=== PATIENT | female | born 1940 | race African-American/Black ===

== ENCOUNTER 2019-06-25 17:09 | Inpatient (IN) | payer MEDICARE, MEDICAID ==
[~2019-06-25] VITALS: Ht 160 cm; Wt 77.1 kg
[2019-06-25 19:28] LABS: CLARITY URINE CLEAR (CLEAR); COLOR URINE YELLOW (YELLOW); KETONES URINE TRACE (NEGATIVE); LEUKOCYTE ESTERASE URINE 2+ (NEGATIVE); NITRITE URINE POSITIVE (NEGATIVE); OCCULT BLOOD URINE 1+ (NEGATIVE); PH URINE 5.5 (4.5-8.0); PROTEIN URINE 1+ (NEGATIVE); SPECIFIC GRAVITY URINE 1.026 (1.005-1.030)
[2019-06-25 19:39] LABS: *AMPHETAMINES SCREEN URINE NEGATIVE (NEGATIVE); *COCAINE SCREEN URINE NEGATIVE (NEGATIVE); CANNABINOID URINE SCREEN NEGATIVE (NEGATIVE); METHADONE URINE SCREEN NEGATIVE (NEGATIVE); OPIATES URINE SCREEN NEGATIVE (NEGATIVE); PHENCYCLIDINE URINE SCREEN NEGATIVE (NEGATIVE)
[2019-06-25 19:40] LABS: *BARBITURATES SCREEN URINE NEGATIVE (NEGATIVE); *BENZODIAZEPINES SCREEN URINE NEGATIVE (NEGATIVE)
[2019-06-25 19:48] LABS: BASOPHILS % 0.6 % (0.0-2.0); EOSINOPHILS % 1.7 % (0.0-5.0); HEMATOCRIT. 41.6 % (36.0-48.0); HEMOGLOBIN. 13.7 g/dL (12.0-16.0); MEAN CORPUSCULAR HEMOGLOBIN 31.2 pg (28.0-32.0); MEAN CORPUSCULAR VOLUME 94.8 fL (81.0-99.0); MEAN PLATELET VOLUME 8.2 fl (7.4-10.4); MONOCYTES % 10.2 % (2.0-8.0); NEUTROPHILS % 62.5 % (40.0-76.0); PLATELET 178 x1000/uL (130-400); RED BLOOD CELL COUNT 4.39 mill/uL (4.2-5.4); RED CELL DISTRIBUTION WIDTH 14.9 % (11.6-14.6)
[2019-06-25 19:54] LABS: CHLORIDE 111 mEq/L (98-107)
[2019-06-25 19:58] LABS: ETHANOL BLOOD < 10 mg/dL
[2019-06-25] MEDS ORDERED: LEVOFLOXACIN 500MG TABLET PO ONE (20:00)
[2019-06-25] MEDS ORDERED: LEVOFLOXACIN 500MG PREMIX 100 ML IV SCH (21:30)
[2019-06-25] MEDS ORDERED: ONDANSETRON HCL 4MG/2ML INJ IV PRN (21:30)
[2019-06-25] MEDS ORDERED: MAGNESIUM/ALUMINUM HYDROXIDE/SIMETHICONE 30ML UDC PO PRN (21:30)
[2019-06-25] MEDS ORDERED: ACETAMINOPHEN 325MG TABLET PO PRN ×2 (21:30)
[2019-06-25] MEDS ORDERED: CLONIDINE 0.1MG TABLET PO PRN (21:30)
[2019-06-25] MEDS ORDERED: GUAIFENESIN 200MG/10ML SUGAR FREE UDC PO PRN (21:30)
[2019-06-25] MEDS ORDERED: DOCUSATE SODIUM 100MG CAPSULE PO PRN (21:30)
[2019-06-25] MEDS ORDERED: NITROGLYCERIN 0.4MG TABLET SL SL PRN (21:30)
[2019-06-25] MEDS ORDERED: IPRATROPIUM/ALBUTEROL 0.5-3(2.5)MG/3ML NEB ORI PRN (21:30)
[2019-06-25 22:10] LABS: LDL CHOLESTEROL 107 mg/dL (5-100); TOTAL IRON BINDING CAPACITY 471 ug/dL (250-450)
[2019-06-25 22:11] LABS: CREATINE KINASE 116 IU/L (26-192); CREATINE KINASE MB FRACTION 1.6 ng/mL (0.5-3.6); HDL CHOLESTEROL 62 mg/dL (40-59)
[2019-06-25 22:12] LABS: T4 FREE 0.99 ng/dL (0.76-1.46)
[2019-06-25] MEDS ORDERED: KETOROLAC 15MG/ML VIAL IV PRN (23:52)
[2019-06-25] MEDS ORDERED: ZOLPIDEM TARTRATE 5MG TABLET PO PRN (23:55)
[2019-06-26] MEDS: HALOPERIDOL LACTATE 5MG/ML VIAL IM PRN (04:22)
[2019-06-26 06:17] LABS: HEMATOCRIT. 39.5 % (36.0-48.0); HEMOGLOBIN. 13.1 g/dL (12.0-16.0); MEAN CORPUSCULAR HEMOGLOBIN 31.2 pg (28.0-32.0); MEAN CORPUSCULAR VOLUME 93.8 fL (81.0-99.0); MEAN PLATELET VOLUME 8.4 fl (7.4-10.4); PLATELET 159 x1000/uL (130-400); RED BLOOD CELL COUNT 4.21 mill/uL (4.2-5.4); RED CELL DISTRIBUTION WIDTH 14.9 % (11.6-14.6)
[2019-06-26 06:22] LABS: CHLORIDE 109 mEq/L (98-107)
[2019-06-26 06:28] LABS: PHOSPHORUS 2.3 mg/dL (2.5-4.9)
[2019-06-26 06:30] LABS: CREATINE KINASE 177 IU/L (26-192)
[2019-06-26 06:33] LABS: CREATINE KINASE MB FRACTION 2.1 ng/mL (0.5-3.6)
[2019-06-26 07:28] LABS: PLATELET ESTIMATE NORMAL
[2019-06-26] MEDS: ENOXAPARIN 40MG/0.4ML SYR SUBCUT SCH (08:57)
[2019-06-26] MEDS ORDERED: ZINC SULFATE 220 MG ( 50 ) CAPSULE PO SCH (09:00)
[2019-06-26] MEDS ORDERED: METOPROLOL TARTRATE 25MG TABLET PO SCH (09:00)
[2019-06-26] MEDS ORDERED: ASCORBIC ACID 500 MG TABLET PO SCH (09:00)
[2019-06-26] MEDS ORDERED: ASPIRIN 325MG EC TABLET PO SCH (09:00)
[2019-06-26] MEDS ORDERED: FAMOTIDINE 20MG TABLET PO SCH (09:00)
[2019-06-26] MEDS ORDERED: IPRATROPIUM/ALBUTEROL 0.5-3(2.5)MG/3ML NEB ORI PRN ×2 (10:00→12:00)
[2019-06-26] MEDS ORDERED: ACETAMINOPHEN 325MG TABLET PO PRN ×2 (10:00)
[2019-06-26 10:53] VITALS: BP 116/90
[2019-06-26] MEDS: FAMOTIDINE 20MG TABLET PO SCH (11:55)
[2019-06-26] MEDS: METOPROLOL TARTRATE 25MG TABLET PO SCH ×2 (11:55→20:55)
[2019-06-26] MEDS: ASCORBIC ACID 500 MG TABLET PO SCH ×2 (11:55→20:56)
[2019-06-26 12:00] VITALS: BP 136/75
[2019-06-26] MEDS ORDERED: CLONIDINE 0.1MG TABLET PO PRN (12:00)
[2019-06-26] MEDS ORDERED: KETOROLAC 15MG/ML VIAL IV PRN (12:00)
[2019-06-26] MEDS ORDERED: NITROGLYCERIN 0.4MG TABLET SL SL PRN (12:00)
[2019-06-26] MEDS ORDERED: GUAIFENESIN 200MG/10ML SUGAR FREE UDC PO PRN (12:00)
[2019-06-26] MEDS ORDERED: ONDANSETRON HCL 4MG/2ML INJ IV PRN (12:00)
[2019-06-26] MEDS ORDERED: DOCUSATE SODIUM 100MG CAPSULE PO PRN (12:00)
[2019-06-26] MEDS ORDERED: MAGNESIUM/ALUMINUM HYDROXIDE/SIMETHICONE 30ML UDC PO PRN (12:00)
[2019-06-26] MEDS: ASPIRIN 325MG EC TABLET PO SCH (15:36)
[2019-06-26] MEDS: ZINC SULFATE 220 MG ( 50 ) CAPSULE PO SCH (15:36)
[2019-06-26] MEDS: SODIUM CHLORIDE 0.9% 1,000 ML IV SCH ×2 (15:37→23:58)
[2019-06-26 16:00] VITALS: BP 139/71
[2019-06-26 20:00] VITALS: BP 108/66
[2019-06-26] MEDS ORDERED: LEVOFLOXACIN 250MG PREMIX 50 ML IV SCH (21:00)
[2019-06-27] VITALS: BP 125/84
[2019-06-27 04:00] VITALS: BP 118/71
[2019-06-27 08:00] VITALS: BP 112/66
[2019-06-27] MEDS: ZINC SULFATE 220 MG ( 50 ) CAPSULE PO SCH (08:42)
[2019-06-27] MEDS: FAMOTIDINE 20MG TABLET PO SCH (08:43)
[2019-06-27] MEDS: METOPROLOL TARTRATE 25MG TABLET PO SCH ×2 (08:43→21:00)
[2019-06-27] MEDS: ASPIRIN 325MG EC TABLET PO SCH (08:43)
[2019-06-27] MEDS: ASCORBIC ACID 500 MG TABLET PO SCH ×2 (08:43→23:05)
[2019-06-27] MEDS: ENOXAPARIN 40MG/0.4ML SYR SUBCUT SCH (09:00)
[2019-06-27 12:00] VITALS: BP 90/45
[2019-06-27] MEDS: SODIUM CHLORIDE 0.9% 1,000 ML IV SCH (13:18)
[2019-06-27] MEDS: LEVOFLOXACIN 250MG TABLET PO SCH (14:00)
[2019-06-27 16:00] VITALS: BP 101/61
[2019-06-27 20:00] VITALS: BP 103/47
[2019-06-27] MEDS ORDERED: ZOLPIDEM TARTRATE 5MG TABLET PO PRN (23:10)
[2019-06-28 00:37] VITALS: BP 105/61
[2019-06-28] MEDS: SODIUM CHLORIDE 0.9% 1,000 ML IV SCH ×2 (02:38→15:58)
[2019-06-28 04:00] VITALS: BP 111/64
[2019-06-28] MEDS: HALOPERIDOL LACTATE 5MG/ML VIAL IM PRN (06:27)
[2019-06-28 08:00] VITALS: BP 118/72
[2019-06-28] MEDS: ASCORBIC ACID 500 MG TABLET PO SCH ×2 (08:38→20:16)
[2019-06-28] MEDS: FAMOTIDINE 20MG TABLET PO SCH (08:38)
[2019-06-28] MEDS: ZINC SULFATE 220 MG ( 50 ) CAPSULE PO SCH (08:38)
[2019-06-28] MEDS: ASPIRIN 325MG EC TABLET PO SCH (08:38)
[2019-06-28] MEDS: METOPROLOL TARTRATE 25MG TABLET PO SCH ×2 (08:46→20:16)
[2019-06-28] MEDS: ENOXAPARIN 40MG/0.4ML SYR SUBCUT SCH (08:47)
[2019-06-28] MEDS: LEVOFLOXACIN 250MG TABLET PO SCH (11:05)
[2019-06-28 16:00] VITALS: BP 106/66
[2019-06-28 20:00] VITALS: BP 119/78
[2019-06-29] VITALS: BP 110/63
[2019-06-29 04:00] VITALS: BP 113/75
[2019-06-29] MEDS: SODIUM CHLORIDE 0.9% 1,000 ML IV SCH (05:06)
[2019-06-29 07:42] VITALS: BP 113/75
[2019-06-29] MEDS: ZINC SULFATE 220 MG ( 50 ) CAPSULE PO SCH (08:46)
[2019-06-29] MEDS: ASCORBIC ACID 500 MG TABLET PO SCH (08:46)
[2019-06-29] MEDS: ASPIRIN 325MG EC TABLET PO SCH (08:46)
[2019-06-29] MEDS: FAMOTIDINE 20MG TABLET PO SCH (08:46)
[2019-06-29] MEDS: METOPROLOL TARTRATE 25MG TABLET PO SCH (08:47)
[2019-06-29] MEDS: ENOXAPARIN 40MG/0.4ML SYR SUBCUT SCH (08:48)
== END 2019-06-29 13:30 | disposition home or self-care (01) | DRG 463 ==
LOC: EDBD 17:09 → ER 17:09 → 6WST 21:12 → SUPCPDRO 21:18 → EDBEDREQSVC 06-26 04:37 → EDBEDREQTM 06-26 04:37 → ENRESERV 06-26 08:37 → ER 06-26 09:56
PROVIDERS: ADMIT Internal Medicine; ATTEND Internal Medicine
DX: N30.90 Cystitis, unspecified without hematuria (principal); G92 Toxic encephalopathy; E83.52 Hypercalcemia; E86.0 Dehydration; I10 Essential (primary) hypertension; M19.90 Unspecified osteoarthritis, unspecified site; R44.3 Hallucinations, unspecified; Z88.5 Allergy status to narcotic agent; Z88.0 Allergy status to penicillin; Z88.8 Allergy status to other drugs, medicaments and biological substances; Z79.899 Other long term (current) drug therapy
CPT/HCPCS: 36415; 80053; 80061; 80305; 80307; 80320; 80329; 81003; 82550; 82553; 82607; 82746; 83540; 83550; 83735; 84100; 84145; 84439; 84443; 84484; 85025; 85379; 93306; 93970; 97162; 97166; 99285; J1630; J1650; J1956; J7030; G0480

== ENCOUNTER 2019-07-10 00:08 | Emergency (ER) | payer MEDICARE, MEDICAID ==
[~2019-07-10] VITALS: Ht 165.1 cm; Wt 81.0 kg
[2019-07-10 01:00] LABS: CHLORIDE 111 mEq/L (98-107)
[2019-07-10 01:01] LABS: BASOPHILS % 0.5 % (0.0-2.0); EOSINOPHILS % 1.3 % (0.0-5.0); HEMATOCRIT. 40.6 % (36.0-48.0); HEMOGLOBIN. 13.6 g/dL (12.0-16.0); LYMPHOCYTES % 26.4 % (20.0-50.0); MEAN CORPUSCULAR HEMOGLOBIN 31.5 pg (28.0-32.0); MEAN CORPUSCULAR VOLUME 94.2 fL (81.0-99.0); MEAN PLATELET VOLUME 8.3 fl (7.4-10.4); MONOCYTES % 13.8 % (2.0-8.0); PLATELET 166 x1000/uL (130-400); RED BLOOD CELL COUNT 4.31 mill/uL (4.2-5.4); RED CELL DISTRIBUTION WIDTH 15.8 % (11.6-14.6)
[2019-07-10 01:59] VITALS: BP 132/82
== END 2019-07-10 03:55 | disposition home or self-care (01) ==
LOC: ER 00:08
DX: G89.29 Other chronic pain (principal); F20.0 Paranoid schizophrenia; E78.00 Pure hypercholesterolemia, unspecified; I10 Essential (primary) hypertension; E11.9 Type 2 diabetes mellitus without complications; Z88.6 Allergy status to analgesic agent; Z91.048 Other nonmedicinal substance allergy status; Z88.0 Allergy status to penicillin; Z79.899 Other long term (current) drug therapy
CPT/HCPCS: 36415; 80053; 83880; 84484; 85025; 93005; 99284

== ENCOUNTER 2019-07-27 12:35 | Inpatient (IN) | payer MEDICARE, MEDICAID ==
[~2019-07-27] VITALS: Ht 157.5 cm; Wt 63.5 kg
[2019-07-27] MEDS ORDERED: FUROSEMIDE 40MG/4ML VIAL IV ONE (13:45)
[2019-07-27] MEDS ORDERED: NITROGLYCERIN OINT 1GM/INCH UDPKT TD ONE (13:45)
[2019-07-27] MEDS ORDERED: ASPIRIN 81MG TABLET PO ONE (13:45)
[2019-07-27 15:43] LABS: CHLORIDE 115 mEq/L (98-107)
[2019-07-27 15:48] LABS: BASOPHILS % 0.9 % (0.0-2.0); D-DIMER 2.19 mg/L FEU (<0.50); HEMATOCRIT. 39.4 % (36.0-48.0); HEMOGLOBIN. 12.4 g/dL (12.0-16.0); INR 1.4; LYMPHOCYTES % 39.2 % (20.0-50.0); MEAN CORPUSCULAR HEMOGLOBIN 31.3 pg (28.0-32.0); MEAN CORPUSCULAR VOLUME 99.6 fL (81.0-99.0); MEAN PLATELET VOLUME 9.2 fl (7.4-10.4); MONOCYTES % 12.9 % (2.0-8.0); PARTIAL THROMBOPLASTIN TIME 31.5 sec (23.4-31.0); PLATELET 144 x1000/uL (130-400); RED BLOOD CELL COUNT 3.95 mill/uL (4.2-5.4); RED CELL DISTRIBUTION WIDTH 16.8 % (11.6-14.6)
[2019-07-27] MEDS: MORPHINE SULFATE 2 MG/ML CPJ (NOT FOR IM USE) IV PRN (20:47)
[2019-07-27 21:56] VITALS: BP 115/67
[2019-07-27] MEDS: ZOLPIDEM TARTRATE 5MG TABLET PO PRN (23:19)
[2019-07-28] VITALS: BP 109/66
[2019-07-28 04:00] VITALS: BP 124/68
[2019-07-28 08:00] VITALS: BP 112/62
[2019-07-28] MEDS: ASPIRIN 81MG TABLET PO SCH (09:18)
[2019-07-28] MEDS: MORPHINE SULFATE 2 MG/ML CPJ (NOT FOR IM USE) IV PRN (09:19)
[2019-07-28] MEDS: FUROSEMIDE 40MG/4ML VIAL IVP SCH (11:27)
[2019-07-28 12:00] VITALS: BP 114/71
[2019-07-28 16:00] VITALS: BP 147/77
[2019-07-28 17:02] LABS: BASOPHILS % 0.7 % (0.0-2.0); EOSINOPHILS % 6.9 % (0.0-5.0); HEMATOCRIT. 39.4 % (36.0-48.0); HEMOGLOBIN. 13.1 g/dL (12.0-16.0); LYMPHOCYTES % 32.2 % (20.0-50.0); MEAN CORPUSCULAR HEMOGLOBIN 31.8 pg (28.0-32.0); MEAN CORPUSCULAR VOLUME 95.5 fL (81.0-99.0); MEAN PLATELET VOLUME 8.9 fl (7.4-10.4); MONOCYTES % 13.9 % (2.0-8.0); NEUTROPHILS % 46.3 % (40.0-76.0); PLATELET 164 x1000/uL (130-400); RED BLOOD CELL COUNT 4.13 mill/uL (4.2-5.4); RED CELL DISTRIBUTION WIDTH 16.1 % (11.6-14.6)
[2019-07-28 20:00] VITALS: BP 112/74
[2019-07-29] VITALS (7 sets, daily range): BP systolic 109–154; BP diastolic 70–93
[2019-07-29] MEDS: MORPHINE SULFATE 2 MG/ML CPJ (NOT FOR IM USE) IV PRN ×2 (01:10→09:31)
[2019-07-29] MEDS: ASPIRIN 81MG TABLET PO SCH (08:35)
[2019-07-29] MEDS: FUROSEMIDE 40MG/4ML VIAL IVP SCH (08:35)
[2019-07-29] MEDS ORDERED: LORAZEPAM 2MG/ML CPJ IV PRN (11:45)
[2019-07-30] VITALS: BP 132/57
[2019-07-30 04:00] VITALS: BP 132/57
[2019-07-30 08:00] VITALS: BP 130/77
[2019-07-30] MEDS: FUROSEMIDE 40MG/4ML VIAL IVP SCH (09:34)
[2019-07-30] MEDS: ASPIRIN 81MG TABLET PO SCH (11:49)
[2019-07-30 12:00] VITALS: BP 114/60
[2019-07-30 16:00] VITALS: BP 114/63
[2019-07-30 22:00] VITALS: BP 95/51
[2019-07-30] MEDS ORDERED: HYDROCODONE/ACETAMINOPHEN 5/325MG TABLET PO PRN (22:30)
[2019-07-30] MEDS ORDERED: TRAMADOL 50MG TABLET PO PRN (22:45)
[2019-07-31] VITALS: BP 94/55
[2019-07-31] MEDS: ZOLPIDEM TARTRATE 5MG TABLET PO PRN (02:07)
[2019-07-31 04:00] VITALS: BP 98/56
[2019-07-31] MEDS ORDERED: LORAZEPAM 1MG TABLET PO PRN (07:00)
[2019-07-31 08:00] VITALS: BP 100/58
[2019-07-31] MEDS: ASPIRIN 81MG TABLET PO SCH (08:40)
[2019-07-31] MEDS ORDERED: FUROSEMIDE 40MG TABLET PO SCH (09:00)
[2019-07-31 12:50] VITALS: BP 97/52
[2019-07-31 13:25] VITALS: BP 97/52
== END 2019-07-31 15:07 | disposition home or self-care (01) | DRG 203 ==
LOC: ER 12:46 → 8WST 16:10 → EDBEDREQ 16:12 → ENRESERV 20:36 → 6EST 07-30 21:50
PROVIDERS: ADMIT Internal Medicine; ATTEND Internal Medicine
DX: R07.89 Other chest pain (principal); I50.33 Acute on chronic diastolic (congestive) heart failure; E87.8 Other disorders of electrolyte and fluid balance, not elsewhere classified; I42.9 Cardiomyopathy, unspecified; E44.1 Mild protein-calorie malnutrition; E11.9 Type 2 diabetes mellitus without complications; I11.0 Hypertensive heart disease with heart failure; E78.00 Pure hypercholesterolemia, unspecified; F99 Mental disorder, not otherwise specified; M19.90 Unspecified osteoarthritis, unspecified site; N39.0 Urinary tract infection, site not specified; E78.5 Hyperlipidemia, unspecified; Z68.25 Body mass index [BMI] 25.0-25.9, adult; Z88.8 Allergy status to other drugs, medicaments and biological substances; Z88.5 Allergy status to narcotic agent; Z79.899 Other long term (current) drug therapy; Z87.891 Personal history of nicotine dependence; Z79.82 Long term (current) use of aspirin; Z88.0 Allergy status to penicillin
CPT/HCPCS: 36415; 71045; 78582; 80048; 80053; 82962; 83880; 84484; 85025; 85379; 93005; 93306; 93970; 99285; A9558; J1940; J2060; J2270

== ENCOUNTER 2019-08-05 11:44 | Emergency (ER) | payer MEDICARE, MEDICAID ==
[~2019-08-05] VITALS: Ht 160 cm; Wt 77.3 kg
[2019-08-05 11:56] VITALS: BP 130/86
[2019-08-05] MEDS ORDERED: KETOROLAC 30MG/ML VIAL IV STA (12:20)
[2019-08-05 16:04] LABS: CHLORIDE 112 mEq/L (98-107)
[2019-08-05 16:06] LABS: HEMATOCRIT. 41.2 % (36.0-48.0); HEMOGLOBIN. 13.6 g/dL (12.0-16.0); MEAN CORPUSCULAR HEMOGLOBIN 31.8 pg (28.0-32.0); MEAN CORPUSCULAR VOLUME 96.4 fL (81.0-99.0); RED BLOOD CELL COUNT 4.28 mill/uL (4.2-5.4); RED CELL DISTRIBUTION WIDTH 16.1 % (11.6-14.6)
[2019-08-05 17:59] LABS: MEAN PLATELET VOLUME 9.6 fl (7.4-10.4); PLATELET 133 x1000/uL (130-400); PLATELET ESTIMATE NORMAL
== END 2019-08-05 15:54 | disposition left against medical advice (07) ==
LOC: ER 12:10
DX: R05 Cough (principal); R07.81 Pleurodynia; E11.9 Type 2 diabetes mellitus without complications; E78.00 Pure hypercholesterolemia, unspecified; I10 Essential (primary) hypertension; Z88.0 Allergy status to penicillin; Z88.6 Allergy status to analgesic agent; Z88.5 Allergy status to narcotic agent
CPT/HCPCS: 36415; 80053; 83880; 84484; 85025; 93005; 99284

== ENCOUNTER 2019-08-05 16:43 | Inpatient (IN) | payer MEDICARE, MEDICAID ==
[~2019-08-05] VITALS: Ht 157.5 cm; Wt 75.3 kg
[2019-08-05] MEDS ORDERED: NITROGLYCERIN 0.4MG TABLET SL SL ONE (22:00)
[2019-08-05] MEDS ORDERED: ONDANSETRON HCL 4MG/2ML INJ IV STA (22:49)
[2019-08-05] MEDS ORDERED: MORPHINE SULFATE 4 MG/ML CPJ (NOT FOR IM USE) IV STA (22:49)
[2019-08-06 03:32] VITALS: BP 133/73
[2019-08-06 04:00] VITALS: BP 133/73
[2019-08-06] MEDS ORDERED: ZOLPIDEM TARTRATE 5MG TABLET PO PRN (04:30)
[2019-08-06] MEDS ORDERED: NITROGLYCERIN 0.4MG TABLET SL SL PRN (05:15)
[2019-08-06] MEDS: MORPHINE SULFATE 2 MG/ML CPJ (NOT FOR IM USE) IV PRN ×2 (07:32→18:59)
[2019-08-06 08:43] VITALS: BP 127/83
[2019-08-06] MEDS: METOPROLOL TARTRATE 25MG TABLET PO SCH ×2 (09:15→21:00)
[2019-08-06] MEDS: ASPIRIN 325MG TABLET PO SCH (09:15)
[2019-08-06] MEDS: ENOXAPARIN 40MG/0.4ML SYR SUBCUT SCH (09:15)
[2019-08-06 12:00] VITALS: BP 121/69
[2019-08-06 16:00] VITALS: BP 110/55
[2019-08-06 20:00] VITALS: BP 124/75
[2019-08-07] VITALS: BP 118/73
[2019-08-07 04:00] VITALS: BP 156/61
[2019-08-07 06:05] LABS: CHLORIDE 110 mEq/L (98-107)
[2019-08-07 07:33] LABS: HEMATOCRIT. 36.3 % (36.0-48.0); HEMOGLOBIN. 12.2 g/dL (12.0-16.0); MEAN CORPUSCULAR HEMOGLOBIN 31.9 pg (28.0-32.0); MEAN CORPUSCULAR VOLUME 94.5 fL (81.0-99.0); MEAN PLATELET VOLUME 9.1 fl (7.4-10.4); PLATELET 148 x1000/uL (130-400); RED BLOOD CELL COUNT 3.84 mill/uL (4.2-5.4)
[2019-08-07 08:00] VITALS: BP 114/59
[2019-08-07] MEDS ORDERED: REGADENOSON 0.4 MG/5 ML IV ONE ×2 (08:41→11:45)
[2019-08-07] MEDS: ENOXAPARIN 40MG/0.4ML SYR SUBCUT SCH (09:00)
[2019-08-07] MEDS: METOPROLOL TARTRATE 25MG TABLET PO SCH ×2 (11:20→21:50)
[2019-08-07] MEDS: ASPIRIN 325MG TABLET PO SCH (11:20)
[2019-08-07 12:00] VITALS: BP 109/59
[2019-08-07 16:00] VITALS: BP_SYST 116; BP_SYST 143; BP_DIAS 67; BP_DIAS 69
[2019-08-07 20:00] VITALS: BP 133/68
[2019-08-07] MEDS: MORPHINE SULFATE 2 MG/ML CPJ (NOT FOR IM USE) IV PRN (21:50)
[2019-08-07 21:55] LABS: PLATELET ESTIMATE NORMAL
[2019-08-08] VITALS: BP 126/75
[2019-08-08 04:00] VITALS: BP 124/73
[2019-08-08 05:30] VITALS: BP 121/55
[2019-08-08 08:29] VITALS: BP 121/55
[2019-08-08] MEDS: ENOXAPARIN 40MG/0.4ML SYR SUBCUT SCH (08:35)
[2019-08-08] MEDS: METOPROLOL TARTRATE 25MG TABLET PO SCH (08:35)
[2019-08-08] MEDS: ASPIRIN 325MG TABLET PO SCH (08:35)
== END 2019-08-08 11:30 | disposition home or self-care (01) | DRG 203 ==
LOC: ER 16:43 → 5WST 23:49 → EDBEDREQTM 23:55 → EDBEDREQ 23:55 → ENRESERV 08-06 01:26 → 5WST 08-07 01:57
PROVIDERS: ADMIT Internal Medicine; ATTEND Internal Medicine
DX: M94.0 Chondrocostal junction syndrome [Tietze] (principal); E87.8 Other disorders of electrolyte and fluid balance, not elsewhere classified; I27.20 Pulmonary hypertension, unspecified; I10 Essential (primary) hypertension; E78.5 Hyperlipidemia, unspecified; E66.9 Obesity, unspecified; E11.9 Type 2 diabetes mellitus without complications; E78.00 Pure hypercholesterolemia, unspecified; Z68.30 Body mass index [BMI] 30.0-30.9, adult; Z88.6 Allergy status to analgesic agent; Z88.0 Allergy status to penicillin; Z88.8 Allergy status to other drugs, medicaments and biological substances; Z88.5 Allergy status to narcotic agent
CPT/HCPCS: 36415; 71045; 78452; 80048; 80053; 83880; 84484; 85025; 93005; 93017; 99284; 99285; A9500; J1650; J2270; J2405; J2785

== ENCOUNTER 2019-09-03 00:19 | Inpatient (IN) | payer MEDICARE, MEDICAID ==
[~2019-09-03] VITALS: Ht 160 cm; Wt 73.9 kg
[2019-09-03 01:17] LABS: BG BASE EXCESS -3.2 mmol/L (-2.0-2.0); BG CARBOXYHEMOGLOBIN 0.3 % (0.5-1.5); BG FRACTION INSPIRED OXYGEN 21; BG HCO3 ACT 21.2 mmol/L (22.0-26.0); BG METHEMOGLOBIN 0.3 % (0.0-1.5); BG OXYHEMOGLOBIN 94.4 % (94.0-97.0); BG PH 7.388 (7.350-7.450); BG PO2 74.4 mmHg (75.0-100.0); BG SAMPLE SITE RIGHT RADIAL; BG TOTAL HEMOGLOBIN 12.5 g/dL (12.0-18.0); BG VENT MODE ROOM AIR
[2019-09-03 01:34] LABS: HEMATOCRIT 37.2 % (36.0-48.0); HEMOGLOBIN 12.5 g/dL (12.0-16.0); MEAN CORPUSCULAR HEMOGLOBIN 31.8 pg (28.0-32.0); MEAN CORPUSCULAR VOLUME 94.5 fL (81.0-99.0); PLATELET 179 x1000/uL (130-400); RED BLOOD CELL COUNT 3.94 mill/uL (4.2-5.4)
[2019-09-03 02:24] LABS: CHLORIDE 108 mEq/L (98-107)
[2019-09-03 02:48] LABS: CLARITY URINE CLOUDY (CLEAR); COLOR URINE YELLOW (YELLOW); KETONES URINE 1+ (NEGATIVE); LEUKOCYTE ESTERASE URINE 1+ (NEGATIVE); NITRITE URINE POSITIVE (NEGATIVE); OCCULT BLOOD URINE TRACE (NEGATIVE); PH URINE 5.5 (4.5-8.0); PROTEIN URINE TRACE (NEGATIVE); SPECIFIC GRAVITY URINE 1.026 (1.005-1.030)
[2019-09-03] MEDS ORDERED: LEVOFLOXACIN 500MG PREMIX 100 ML IV ONE (05:00)
[2019-09-03] MEDS ORDERED: NITROGLYCERIN 0.4MG TABLET SL SL PRN ×2 (08:00→11:00)
[2019-09-03] MEDS ORDERED: MAGNESIUM/ALUMINUM HYDROXIDE/SIMETHICONE 30ML UDC PO PRN ×2 (08:00→11:00)
[2019-09-03] MEDS ORDERED: ONDANSETRON HCL 4MG/2ML INJ IV PRN (08:00)
[2019-09-03] MEDS ORDERED: GUAIFENESIN/DM 600MG/30MG ER TAB 12HR PO SCH (08:00)
[2019-09-03] MEDS ORDERED: IPRATROPIUM/ALBUTEROL 0.5-3(2.5)MG/3ML NEB ORI PRN (08:00)
[2019-09-03] MEDS ORDERED: DEXTROSE 50% WATER 50ML SYRINGE IV PRN (08:00)
[2019-09-03] MEDS ORDERED: AZITHROMYCIN 500 MG in DEXT 5% WATER 250 ML IV SCH ×2 (08:00→13:00)
[2019-09-03] MEDS ORDERED: GUAIFENESIN 200MG/10ML SUGAR FREE UDC PO PRN (08:00)
[2019-09-03] MEDS ORDERED: KETOROLAC 15MG/ML VIAL IV PRN ×2 (08:00→11:00)
[2019-09-03] MEDS ORDERED: IPRATROPIUM/ALBUTEROL 0.5-3(2.5)MG/3ML NEB HHN SCH ×2 (08:00→11:00)
[2019-09-03] MEDS ORDERED: TRAMADOL 50MG TABLET PO PRN ×2 (08:00→11:00)
[2019-09-03] MEDS ORDERED: ZOLPIDEM TARTRATE 5MG TABLET PO PRN ×2 (08:00→11:00)
[2019-09-03] MEDS ORDERED: ENOXAPARIN 40MG/0.4ML SYR SUBCUT SCH (08:00)
[2019-09-03] MEDS ORDERED: DOCUSATE SODIUM 100MG CAPSULE PO PRN (08:00)
[2019-09-03] MEDS ORDERED: CLONIDINE 0.1MG TABLET PO PRN (08:00)
[2019-09-03] MEDS ORDERED: INSULIN LISPRO 100 UNITS/ML SUBCUT SCH (08:20)
[2019-09-03] MEDS ORDERED: BLOOD SUGAR DIAGNOSTIC STRIP TEST SCH (09:00)
[2019-09-03] MEDS ORDERED: ZINC SULFATE 220 MG ( 50 ) CAPSULE PO SCH (09:00)
[2019-09-03] MEDS ORDERED: CEFTRIAXONE 1 G PREMIX 50 ML IV SCH ×2 (09:00→11:00)
[2019-09-03] MEDS ORDERED: ASCORBIC ACID 500 MG TABLET PO SCH (09:00)
[2019-09-03] MEDS ORDERED: ASPIRIN 325MG EC TABLET PO SCH (09:00)
[2019-09-03] MEDS ORDERED: FAMOTIDINE 20MG TABLET PO SCH (09:00)
[2019-09-03 10:50] VITALS: BP 128/74
[2019-09-03 12:00] VITALS: BP 127/74
[2019-09-03] MEDS: BLOOD SUGAR DIAGNOSTIC STRIP TEST SCH ×3 (12:40→21:06)
[2019-09-03] MEDS: INSULIN LISPRO 100 UNITS/ML SUBCUT SCH ×3 (13:10→21:00)
[2019-09-03] MEDS: GUAIFENESIN/DM 600MG/30MG ER TAB 12HR PO SCH ×2 (14:34→21:05)
[2019-09-03] MEDS: FAMOTIDINE 20MG TABLET PO SCH (14:34)
[2019-09-03] MEDS: ENOXAPARIN 40MG/0.4ML SYR SUBCUT SCH (14:36)
[2019-09-03] MEDS ORDERED: RISP05 PO (15:00)
[2019-09-03] MEDS ORDERED: CEFTRIAXONE 1,000 MG in DEXTROSE 5% WATER 50 ML IV SCH (15:00)
[2019-09-03 16:00] VITALS: BP 100/52
[2019-09-03 20:00] VITALS: BP 96/45
[2019-09-03] MEDS: CEFTRIAXONE 1,000 MG in DEXTROSE 5% WATER 50 ML IV SCH (21:00)
[2019-09-03] MEDS: ASCORBIC ACID 500 MG TABLET PO SCH (21:05)
[2019-09-04] VITALS (7 sets, daily range): BP systolic 99–128; BP diastolic 42–83
[2019-09-04 00:01] LABS: CREATINE KINASE 518 IU/L (26-192)
[2019-09-04 00:04] LABS: CREATINE KINASE MB FRACTION 1.5 ng/mL (0.5-3.6)
[2019-09-04] MEDS: CEFTRIAXONE 1,000 MG in DEXTROSE 5% WATER 50 ML IV SCH ×2 (00:13→21:36)
[2019-09-04] MEDS: BLOOD SUGAR DIAGNOSTIC STRIP TEST SCH ×4 (06:50→21:36)
[2019-09-04] MEDS: INSULIN LISPRO 100 UNITS/ML SUBCUT SCH ×4 (06:51→21:00)
[2019-09-04] MEDS: ZINC SULFATE 220 MG ( 50 ) CAPSULE PO SCH (08:52)
[2019-09-04] MEDS: ASCORBIC ACID 500 MG TABLET PO SCH ×2 (08:52→21:36)
[2019-09-04] MEDS: FAMOTIDINE 20MG TABLET PO SCH (08:52)
[2019-09-04] MEDS: GUAIFENESIN/DM 600MG/30MG ER TAB 12HR PO SCH ×2 (08:52→21:36)
[2019-09-04] MEDS: ENOXAPARIN 40MG/0.4ML SYR SUBCUT SCH (08:52)
[2019-09-04] MEDS: ASPIRIN 325MG EC TABLET PO SCH (08:52)
[2019-09-04] MEDS ORDERED: AZITHROMYCIN 500 MG in DEXT 5% WATER 250 ML IV SCH (13:00)
[2019-09-05 00:45] VITALS: BP 124/53
[2019-09-05 04:00] VITALS: BP 104/69
[2019-09-05] MEDS: BLOOD SUGAR DIAGNOSTIC STRIP TEST SCH ×2 (05:57→12:23)
[2019-09-05] MEDS: INSULIN LISPRO 100 UNITS/ML SUBCUT SCH ×2 (06:40→12:15)
[2019-09-05 08:00] VITALS: BP 117/78
[2019-09-05] MEDS ORDERED: AZITHROMYCIN 500 MG TABLET PO SCH (09:00)
[2019-09-05] MEDS: ENOXAPARIN 40MG/0.4ML SYR SUBCUT SCH ×2 (09:00→09:28)
[2019-09-05] MEDS: ASPIRIN 325MG EC TABLET PO SCH (09:27)
[2019-09-05] MEDS: GUAIFENESIN/DM 600MG/30MG ER TAB 12HR PO SCH (09:28)
[2019-09-05] MEDS: ASCORBIC ACID 500 MG TABLET PO SCH (09:28)
[2019-09-05] MEDS: FAMOTIDINE 20MG TABLET PO SCH (09:28)
[2019-09-05] MEDS: ZINC SULFATE 220 MG ( 50 ) CAPSULE PO SCH (09:28)
[2019-09-05 12:00] VITALS: BP 113/77
== END 2019-09-05 15:40 | disposition left against medical advice (07) | DRG 139 ==
LOC: ER 00:19 → 7WST 04:56 → ENRESERV 09:53 → ER 10:48 → 5WST 09-04 01:16
PROVIDERS: ADMIT Internal Medicine; ATTEND Internal Medicine
DX: J18.9 Pneumonia, unspecified organism (principal); N39.0 Urinary tract infection, site not specified; G92 Toxic encephalopathy; E83.52 Hypercalcemia; I10 Essential (primary) hypertension; E86.0 Dehydration; E11.9 Type 2 diabetes mellitus without complications; E78.00 Pure hypercholesterolemia, unspecified; Z20.828 Contact with and (suspected) exposure to other viral communicable diseases; Z53.29 Procedure and treatment not carried out because of patient's decision for other reasons; Z60.2 Problems related to living alone; Z88.0 Allergy status to penicillin; Z79.899 Other long term (current) drug therapy; Z88.8 Allergy status to other drugs, medicaments and biological substances; Z88.5 Allergy status to narcotic agent
CPT/HCPCS: 36415; 36600; 71045; 80048; 81003; 82375; 82550; 82553; 82805; 82962; 83036; 84484; 85027; 87077; 87186; 93005; 93970; 97162; 97165; 99285; J0456; J0696; J1650; J1956; J7060; U0003-CS

== ENCOUNTER 2019-10-22 00:38 | Inpatient (IN) | payer MEDICARE, MEDICAID ==
[~2019-10-22] VITALS: Ht 162.6 cm; Wt 72.6 kg
[~2019-10-22 00:38] MED LIST: RISP05 PO
[2019-10-22] MEDS ORDERED: ASPIRIN 81MG TABLET PO ONE (01:30)
[2019-10-22] MEDS ORDERED: NITROGLYCERIN OINT 1GM/INCH UDPKT TD ONE (01:30)
[2019-10-22 02:46] LABS: CHLORIDE 115 mEq/L (98-107)
[2019-10-22 02:53] LABS: HEMATOCRIT. 36.5 % (36.0-48.0); MEAN CORPUSCULAR HEMOGLOBIN 31.8 pg (28.0-32.0); MEAN CORPUSCULAR VOLUME 96.7 fL (81.0-99.0); MEAN PLATELET VOLUME 8.9 fl (7.4-10.4); PLATELET 140 x1000/uL (130-400); RED BLOOD CELL COUNT 3.77 mill/uL (4.2-5.4); RED CELL DISTRIBUTION WIDTH 15.4 % (11.6-14.6)
[2019-10-22] MEDS ORDERED: IBUPROFEN 400MG TABLET PO ONE (04:00)
[2019-10-22 06:23] LABS: PLATELET ESTIMATE NORMAL
[2019-10-22] MEDS ORDERED: IPRATROPIUM/ALBUTEROL 0.5-3(2.5)MG/3ML NEB NEB PRN (07:00)
[2019-10-22] MEDS ORDERED: NITROGLYCERIN 0.4MG TABLET SL SL PRN (07:00)
[2019-10-22] MEDS ORDERED: MAGNESIUM/ALUMINUM HYDROXIDE/SIMETHICONE 30ML UDC PO PRN (07:00)
[2019-10-22] MEDS ORDERED: CLONIDINE 0.1MG TABLET PO PRN (07:00)
[2019-10-22] MEDS ORDERED: GUAIFENESIN 200MG/10ML SUGAR FREE UDC PO PRN (07:00)
[2019-10-22] MEDS ORDERED: ONDANSETRON HCL 4MG/2ML INJ IV PRN (07:00)
[2019-10-22] MEDS ORDERED: DOCUSATE SODIUM 100MG CAPSULE PO PRN (07:00)
[2019-10-22] MEDS ORDERED: TRAMADOL 50MG TABLET PO PRN (07:00)
[2019-10-22] MEDS ORDERED: LORAZEPAM 0.5MG TABLET PO PRN (07:00)
[2019-10-22] MEDS ORDERED: DEXTROSE 50% WATER 50ML SYRINGE IV PRN (07:00)
[2019-10-22] MEDS ORDERED: ACETAMINOPHEN 325MG TABLET PO PRN ×2 (07:00)
[2019-10-22] MEDS: BLOOD SUGAR DIAGNOSTIC STRIP TEST SCH ×4 (08:14→20:56)
[2019-10-22] MEDS: INSULIN LISPRO 100 UNITS/ML SUBCUT SCH ×4 (08:14→20:56)
[2019-10-22] MEDS: ENOXAPARIN 40MG/0.4ML SYR SUBCUT SCH ×2 (09:00→11:13)
[2019-10-22 10:00] VITALS: BP 101/59
[2019-10-22] MEDS: SUCRALFATE 1 G/10 ML UDC PO SCH ×4 (11:12→20:56)
[2019-10-22] MEDS: ZINC SULFATE 220 MG ( 50 ) CAPSULE PO SCH (11:12)
[2019-10-22] MEDS: ASPIRIN 325MG EC TABLET PO SCH (11:12)
[2019-10-22] MEDS: ASCORBIC ACID 500 MG TABLET PO SCH ×2 (11:12→20:56)
[2019-10-22 11:48] VITALS: BP 101/59
[2019-10-22 12:00] VITALS: BP 100/60
[2019-10-22 16:00] VITALS: BP 110/70
[2019-10-22 16:15] LABS: CREATINE KINASE 64 IU/L (26-192)
[2019-10-22 16:16] LABS: CREATINE KINASE MB FRACTION < 1.0 ng/mL (0.5-3.6)
[2019-10-22 19:10] LABS: CLARITY URINE CLOUDY (CLEAR); COLOR URINE YELLOW (YELLOW); KETONES URINE TRACE (NEGATIVE); LEUKOCYTE ESTERASE URINE 2+ (NEGATIVE); NITRITE URINE POSITIVE (NEGATIVE); OCCULT BLOOD URINE TRACE (NEGATIVE); PROTEIN URINE NEGATIVE (NEGATIVE); SPECIFIC GRAVITY URINE 1.026 (1.005-1.030)
[2019-10-22 20:00] VITALS: BP 79/43
[2019-10-22] MEDS: KETOROLAC 15MG/ML VIAL IV PRN (20:31)
[2019-10-22] MEDS ORDERED: ZOLPIDEM TARTRATE 5MG TABLET PO PRN (21:00)
[2019-10-23] VITALS: BP 96/55
[2019-10-23 00:04] LABS: CREATINE KINASE 62 IU/L (26-192); CREATINE KINASE MB FRACTION < 1.0 ng/mL (0.5-3.6)
[2019-10-23 04:00] VITALS: BP 93/56
[2019-10-23 04:18] LABS: *AMPHETAMINES SCREEN URINE NEGATIVE (NEGATIVE); *BARBITURATES SCREEN URINE NEGATIVE (NEGATIVE)
[2019-10-23 04:19] LABS: *BENZODIAZEPINES SCREEN URINE NEGATIVE (NEGATIVE); *COCAINE SCREEN URINE NEGATIVE (NEGATIVE); CANNABINOID URINE SCREEN NEGATIVE (NEGATIVE); METHADONE URINE SCREEN NEGATIVE (NEGATIVE); OPIATES URINE SCREEN NEGATIVE (NEGATIVE); PHENCYCLIDINE URINE SCREEN NEGATIVE (NEGATIVE)
[2019-10-23] MEDS: KETOROLAC 15MG/ML VIAL IV PRN (05:50)
[2019-10-23] MEDS: BLOOD SUGAR DIAGNOSTIC STRIP TEST SCH ×4 (06:37→20:54)
[2019-10-23] MEDS: INSULIN LISPRO 100 UNITS/ML SUBCUT SCH ×4 (06:37→20:54)
[2019-10-23] MEDS: SUCRALFATE 1 G/10 ML UDC PO SCH ×4 (06:37→20:54)
[2019-10-23 08:00] VITALS: BP 130/68
[2019-10-23] MEDS: ASPIRIN 325MG EC TABLET PO SCH (09:56)
[2019-10-23] MEDS: ZINC SULFATE 220 MG ( 50 ) CAPSULE PO SCH (09:56)
[2019-10-23] MEDS: ASCORBIC ACID 500 MG TABLET PO SCH ×2 (09:56→20:54)
[2019-10-23] MEDS: ENOXAPARIN 40MG/0.4ML SYR SUBCUT SCH (09:57)
[2019-10-23 12:00] VITALS: BP 113/57
[2019-10-23] MEDS: MEROPENEM 1,000 MG in SODIUM CHLORIDE 0.9% 100 ML IV SCH (14:56)
[2019-10-23 16:00] VITALS: BP 122/73
[2019-10-23 20:00] VITALS: BP 106/60
[2019-10-24] VITALS: BP 131/68
[2019-10-24] MEDS: MEROPENEM 1,000 MG in SODIUM CHLORIDE 0.9% 100 ML IV SCH ×2 (02:00→14:00)
[2019-10-24 04:00] VITALS: BP 134/58
[2019-10-24] MEDS: INSULIN LISPRO 100 UNITS/ML SUBCUT SCH ×2 (06:19→11:28)
[2019-10-24] MEDS: BLOOD SUGAR DIAGNOSTIC STRIP TEST SCH ×2 (06:19→11:28)
[2019-10-24 08:00] VITALS: BP 110/68
[2019-10-24] MEDS: SUCRALFATE 1 G/10 ML UDC PO SCH ×2 (10:01→11:08)
[2019-10-24] MEDS: ZINC SULFATE 220 MG ( 50 ) CAPSULE PO SCH (10:01)
[2019-10-24] MEDS: ENOXAPARIN 40MG/0.4ML SYR SUBCUT SCH (10:01)
[2019-10-24] MEDS: ASCORBIC ACID 500 MG TABLET PO SCH (10:01)
[2019-10-24] MEDS: ASPIRIN 325MG EC TABLET PO SCH (10:01)
[2019-10-24 12:00] VITALS: BP 119/65
== END 2019-10-24 17:05 | disposition left against medical advice (07) | DRG 720 ==
LOC: ER 00:38 → 8WST 04:06 → ENRESERV 07:31
PROVIDERS: ADMIT Internal Medicine; ATTEND Internal Medicine
DX: A41.51 Sepsis due to Escherichia coli [E. coli] (principal); M94.0 Chondrocostal junction syndrome [Tietze]; I10 Essential (primary) hypertension; E11.9 Type 2 diabetes mellitus without complications; E78.00 Pure hypercholesterolemia, unspecified; F20.9 Schizophrenia, unspecified; N39.0 Urinary tract infection, site not specified; Z79.4 Long term (current) use of insulin; Z88.0 Allergy status to penicillin; Z91.09 Other allergy status, other than to drugs and biological substances; Z79.899 Other long term (current) drug therapy; I95.9 Hypotension, unspecified; Z16.12 Extended spectrum beta lactamase (ESBL) resistance
CPT/HCPCS: 36415; 71045; 80053; 80061; 80305; 81003; 82550; 82553; 82962; 83036; 83605; 83880; 84484; 85025; 87077; 87186; 93005; 93970; 99285; J1650; J1885; J2185; J7050

== ENCOUNTER 2019-11-27 03:02 | Emergency (ER) | payer MEDICARE, MEDICAID ==
[~2019-11-27] VITALS: Ht 165.1 cm; Wt 65.0 kg
[2019-11-27] MEDS ORDERED: ASPIRIN 81MG TABLET PO ONE (04:15)
[2019-11-27] MEDS ORDERED: NITROGLYCERIN 0.4MG TABLET SL SL PRN (04:15)
[2019-11-27 05:34] LABS: CHLORIDE 114 mEq/L (98-107)
[2019-11-27 08:01] LABS: HEMATOCRIT. 35.1 % (36.0-48.0); HEMOGLOBIN. 11.5 g/dL (12.0-16.0); MEAN CORPUSCULAR HEMOGLOBIN 31.8 pg (28.0-32.0); MEAN CORPUSCULAR VOLUME 96.5 fL (81.0-99.0); MEAN PLATELET VOLUME 8.6 fl (7.4-10.4); PLATELET 140 x1000/uL (130-400); RED BLOOD CELL COUNT 3.63 mill/uL (4.2-5.4); RED CELL DISTRIBUTION WIDTH 15.8 % (11.6-14.6)
[2019-11-27 08:21] LABS: PLATELET ESTIMATE NORMAL
[2019-11-27 10:09] VITALS: BP 144/90
== END 2019-11-27 11:03 | disposition home or self-care (01) ==
LOC: ER 03:02
DX: R07.89 Other chest pain (principal); I10 Essential (primary) hypertension; Z88.6 Allergy status to analgesic agent; Z91.048 Other nonmedicinal substance allergy status; Z88.0 Allergy status to penicillin
CPT/HCPCS: 36415; 71045; 80053; 83880; 84484; 85025; 93005; 99285

== ENCOUNTER 2019-11-27 18:48 | Inpatient (IN) | payer MEDICARE, MEDICAID ==
[~2019-11-27] VITALS: Ht 167.6 cm; Wt 76.7 kg
[2019-11-27] MEDS ORDERED: IBUPROFEN 600MG TABLET PO ONE (19:15)
[2019-11-27] MEDS ORDERED: ASPIRIN 325MG TABLET PO ONE (23:00)
[2019-11-27 23:23] LABS: CHLORIDE 113 mEq/L (98-107)
[2019-11-27 23:29] LABS: BASOPHILS % 0.8 % (0.0-2.0); EOSINOPHILS % 2.3 % (0.0-5.0); HEMATOCRIT. 37.4 % (36.0-48.0); HEMOGLOBIN. 12.4 g/dL (12.0-16.0); LYMPHOCYTES % 26.4 % (20.0-50.0); MEAN CORPUSCULAR HEMOGLOBIN 31.8 pg (28.0-32.0); MEAN CORPUSCULAR VOLUME 95.7 fL (81.0-99.0); MEAN PLATELET VOLUME 9.6 fl (7.4-10.4); MONOCYTES % 14.5 % (2.0-8.0); PLATELET 161 x1000/uL (130-400); RED BLOOD CELL COUNT 3.91 mill/uL (4.2-5.4); RED CELL DISTRIBUTION WIDTH 15.7 % (11.6-14.6)
[2019-11-28] VITALS (7 sets, daily range): BP systolic 97–155; BP diastolic 57–87
[2019-11-28] MEDS ORDERED: HALOPERIDOL 0.5MG TABLET PO PRN (04:00)
[2019-11-28] MEDS ORDERED: NITROGLYCERIN 0.4MG TABLET SL SL PRN (04:00)
[2019-11-28] MEDS: CLONIDINE 0.1MG TABLET PO SCH ×3 (06:11→21:35)
[2019-11-28] MEDS: ASPIRIN 325MG EC TABLET PO SCH (08:56)
[2019-11-28] MEDS: ENOXAPARIN 40MG/0.4ML SYR SUBCUT SCH (08:57)
[2019-11-28] MEDS: METOPROLOL TARTRATE 25MG TABLET PO SCH (09:00)
[2019-11-28] MEDS ORDERED: MAGNESIUM/ALUMINUM HYDROXIDE/SIMETHICONE 30ML UDC PO PRN (09:45)
[2019-11-28] MEDS ORDERED: DEXTROSE 50% WATER 50ML SYRINGE IV PRN (09:45)
[2019-11-28] MEDS ORDERED: CLONIDINE 0.1MG TABLET PO PRN (09:45)
[2019-11-28] MEDS ORDERED: ONDANSETRON HCL 4MG/2ML INJ IV PRN (09:45)
[2019-11-28] MEDS ORDERED: GUAIFENESIN 200MG/10ML SUGAR FREE UDC PO PRN (09:45)
[2019-11-28] MEDS ORDERED: IPRATROPIUM/ALBUTEROL 0.5-3(2.5)MG/3ML NEB NEB PRN (09:45)
[2019-11-28] MEDS ORDERED: DOCUSATE SODIUM 100MG CAPSULE PO PRN (09:45)
[2019-11-28 10:39] LABS: CREATINE KINASE 70 IU/L (26-192)
[2019-11-28 10:40] LABS: CREATINE KINASE MB FRACTION 1.1 ng/mL (0.5-3.6)
[2019-11-28] MEDS: ZINC SULFATE 220 MG ( 50 ) CAPSULE PO SCH (11:47)
[2019-11-28] MEDS: FAMOTIDINE 20MG TABLET PO SCH ×2 (11:47→20:35)
[2019-11-28] MEDS: INSULIN LISPRO 100 UNITS/ML SUBCUT SCH ×3 (12:40→21:00)
[2019-11-28] MEDS: BLOOD SUGAR DIAGNOSTIC STRIP TEST SCH ×3 (12:53→20:35)
[2019-11-28] MEDS: KETOROLAC 30MG/ML VIAL IV PRN (17:01)
[2019-11-28] MEDS: MEROPENEM 1,000 MG in SODIUM CHLORIDE 0.9% 100 ML IV SCH ×2 (17:03→21:38)
[2019-11-28] MEDS: ASCORBIC ACID 500 MG TABLET PO SCH (20:35)
[2019-11-28 21:34] LABS: *AMPHETAMINES SCREEN URINE NEGATIVE (NEGATIVE); *BARBITURATES SCREEN URINE NEGATIVE (NEGATIVE); *BENZODIAZEPINES SCREEN URINE NEGATIVE (NEGATIVE); *COCAINE SCREEN URINE NEGATIVE (NEGATIVE); METHADONE URINE SCREEN NEGATIVE (NEGATIVE); OPIATES URINE SCREEN NEGATIVE (NEGATIVE)
[2019-11-28 21:35] LABS: CANNABINOID URINE SCREEN NEGATIVE (NEGATIVE); PHENCYCLIDINE URINE SCREEN NEGATIVE (NEGATIVE)
[2019-11-28] MEDS: ZOLPIDEM TARTRATE 5MG TABLET PO PRN (21:50)
[2019-11-29 01:13] VITALS: BP_SYST 102; BP_SYST 135; BP_DIAS 54; BP_DIAS 76
[2019-11-29 04:00] VITALS: BP 140/73
[2019-11-29] MEDS: MEROPENEM 1,000 MG in SODIUM CHLORIDE 0.9% 100 ML IV SCH ×3 (06:07→22:00)
[2019-11-29] MEDS: CLONIDINE 0.1MG TABLET PO SCH ×3 (06:07→22:00)
[2019-11-29 06:56] LABS: CHLORIDE 112 mEq/L (98-107); HEMATOCRIT. 33.7 % (36.0-48.0); HEMOGLOBIN. 11.1 g/dL (12.0-16.0); MEAN CORPUSCULAR HEMOGLOBIN 31.8 pg (28.0-32.0); MEAN CORPUSCULAR VOLUME 96.5 fL (81.0-99.0); MEAN PLATELET VOLUME 9.2 fl (7.4-10.4); PLATELET 140 x1000/uL (130-400); RED BLOOD CELL COUNT 3.49 mill/uL (4.2-5.4); RED CELL DISTRIBUTION WIDTH 15.3 % (11.6-14.6)
[2019-11-29 07:04] LABS: PHOSPHORUS 2.8 mg/dL (2.5-4.9)
[2019-11-29] MEDS: BLOOD SUGAR DIAGNOSTIC STRIP TEST SCH ×4 (07:36→21:14)
[2019-11-29] MEDS: INSULIN LISPRO 100 UNITS/ML SUBCUT SCH ×4 (07:36→21:00)
[2019-11-29 08:00] VITALS: BP 119/70
[2019-11-29] MEDS: ASPIRIN 325MG EC TABLET PO SCH (08:46)
[2019-11-29] MEDS: ASCORBIC ACID 500 MG TABLET PO SCH ×2 (08:46→21:13)
[2019-11-29] MEDS: FAMOTIDINE 20MG TABLET PO SCH ×2 (08:46→21:14)
[2019-11-29] MEDS: ZINC SULFATE 220 MG ( 50 ) CAPSULE PO SCH (08:46)
[2019-11-29] MEDS: METOPROLOL TARTRATE 25MG TABLET PO SCH ×2 (08:47→21:00)
[2019-11-29] MEDS: ENOXAPARIN 40MG/0.4ML SYR SUBCUT SCH (08:51)
[2019-11-29 08:53] LABS: PLATELET ESTIMATE NORMAL
[2019-11-29] MEDS: KETOROLAC 30MG/ML VIAL IV PRN ×2 (09:20→16:52)
[2019-11-29 12:00] VITALS: BP 105/52
[2019-11-29 16:00] VITALS: BP 104/35
[2019-11-29 20:00] VITALS: BP 108/61
[2019-11-29] MEDS: ZOLPIDEM TARTRATE 5MG TABLET PO PRN (23:48)
[2019-11-30] VITALS: BP 109/63
[2019-11-30 04:00] VITALS: BP 139/68
[2019-11-30] MEDS: MEROPENEM 1,000 MG in SODIUM CHLORIDE 0.9% 100 ML IV SCH (06:00)
[2019-11-30] MEDS: BLOOD SUGAR DIAGNOSTIC STRIP TEST SCH ×2 (06:46→12:10)
[2019-11-30] MEDS: CLONIDINE 0.1MG TABLET PO SCH ×2 (06:46→14:00)
[2019-11-30] MEDS: INSULIN LISPRO 100 UNITS/ML SUBCUT SCH ×2 (06:54→12:40)
[2019-11-30 08:00] VITALS: BP 141/80
[2019-11-30] MEDS: ENOXAPARIN 40MG/0.4ML SYR SUBCUT SCH (09:00)
[2019-11-30] MEDS: FAMOTIDINE 20MG TABLET PO SCH (09:26)
[2019-11-30] MEDS: ZINC SULFATE 220 MG ( 50 ) CAPSULE PO SCH (09:26)
[2019-11-30] MEDS: ASCORBIC ACID 500 MG TABLET PO SCH (09:26)
[2019-11-30] MEDS: METOPROLOL TARTRATE 25MG TABLET PO SCH (09:27)
[2019-11-30] MEDS ORDERED: NITROFURANTOIN 100MG M/M CAPSULE PO SCH (09:30)
[2019-11-30] MEDS ORDERED: INFLUENZA VACCINE 05/PF 0.5 ML VIAL IM ONE (10:45)
[2019-11-30 11:01] VITALS: BP 114/69
[2019-11-30] MEDS: ASPIRIN 325MG EC TABLET PO SCH (13:19)
[2019-11-30] MEDS ORDERED: IBUPROFEN 400MG TABLET PO PRN (15:00)
[2019-11-30 16:04] VITALS: BP 114/69
== END 2019-11-30 17:30 | disposition home health service (06) | DRG 52 ==
LOC: ER 18:48 → 8WST 22:56 → EDBEDREQ 23:24 → EDBEDREQTM 23:24 → ENRESERV 23:36
PROVIDERS: ADMIT Internal Medicine; ATTEND Internal Medicine
DX: G92 Toxic encephalopathy (principal); N39.0 Urinary tract infection, site not specified; E83.52 Hypercalcemia; E11.9 Type 2 diabetes mellitus without complications; F20.9 Schizophrenia, unspecified; I10 Essential (primary) hypertension; E78.00 Pure hypercholesterolemia, unspecified; R07.9 Chest pain, unspecified; Z88.6 Allergy status to analgesic agent; Z88.5 Allergy status to narcotic agent; Z88.0 Allergy status to penicillin; Z88.8 Allergy status to other drugs, medicaments and biological substances; E44.0 Moderate protein-calorie malnutrition; Z68.27 Body mass index [BMI] 27.0-27.9, adult; R53.81 Other malaise
CPT/HCPCS: 36415; 71045; 80053; 80305; 82550; 82553; 82962; 83036; 83735; 83880; 83970; 84100; 84484; 85025; 87106; 90686; 93005; 93970; 97162; 97166; 97535; 99285; J1650; J1885; J2185; J7050

== ENCOUNTER 2020-01-16 16:11 | Emergency (ER) | payer MEDICARE, MEDICAID ==
[~2020-01-16] VITALS: Ht 165.1 cm; Wt 61.0 kg
[2020-01-16 18:25] LABS: HEMOGLOBIN. 12.3 g/dL (12.0-16.0); MEAN CORPUSCULAR HEMOGLOBIN 31.7 pg (28.0-32.0); MEAN CORPUSCULAR VOLUME 92.5 fL (81.0-99.0); MEAN PLATELET VOLUME 9.7 fl (7.4-10.4); PLATELET 231 x1000/uL (130-400); RED BLOOD CELL COUNT 3.89 mill/uL (4.2-5.4); RED CELL DISTRIBUTION WIDTH 14.5 % (11.6-14.6)
[2020-01-16 18:42] VITALS: BP 144/98
[2020-01-16 20:09] LABS: PLATELET ESTIMATE NORMAL
[2020-01-16 20:21] LABS: CHLORIDE 110 mEq/L (98-107)
== END 2020-01-17 01:38 | disposition home or self-care (01) ==
LOC: ER 16:11
DX: R07.89 Other chest pain (principal); R06.02 Shortness of breath; R05 Cough; I10 Essential (primary) hypertension; Z88.0 Allergy status to penicillin; Z88.6 Allergy status to analgesic agent; Z88.8 Allergy status to other drugs, medicaments and biological substances
CPT/HCPCS: 36415; 71045; 80053; 83880; 84484; 85025; 93005; 99285

== ENCOUNTER 2020-04-07 04:13 | Inpatient (IN) | payer MEDICARE, MEDICAID ==
[~2020-04-07] VITALS: Ht 162.6 cm; Wt 73.9 kg
[2020-04-07 07:47] LABS: CLARITY URINE CLOUDY (CLEAR); COLOR URINE YELLOW (YELLOW); KETONES URINE NEGATIVE (NEGATIVE); LEUKOCYTE ESTERASE URINE 1+ (NEGATIVE); NITRITE URINE NEGATIVE (NEGATIVE); OCCULT BLOOD URINE NEGATIVE (NEGATIVE); PH URINE 5.5 (4.5-8.0); PROTEIN URINE NEGATIVE (NEGATIVE); SPECIFIC GRAVITY URINE 1.028 (1.005-1.030)
[2020-04-07 09:12] LABS: INR 1.1; PROTHROMBIN TIME 11.3 sec (9.6-11.0)
[2020-04-07 09:14] LABS: CHLORIDE 113 mEq/L (98-107)
[2020-04-07 09:18] LABS: ETHANOL BLOOD < 10 mg/dL
[2020-04-07 09:24] LABS: *BENZODIAZEPINES SCREEN URINE NEGATIVE (NEGATIVE); *COCAINE SCREEN URINE NEGATIVE (NEGATIVE); METHADONE URINE SCREEN NEGATIVE (NEGATIVE); OPIATES URINE SCREEN NEGATIVE (NEGATIVE)
[2020-04-07 09:25] LABS: *BARBITURATES SCREEN URINE NEGATIVE (NEGATIVE); CANNABINOID URINE SCREEN NEGATIVE (NEGATIVE); PHENCYCLIDINE URINE SCREEN NEGATIVE (NEGATIVE)
[2020-04-07 09:26] LABS: *AMPHETAMINES SCREEN URINE NEGATIVE (NEGATIVE)
[2020-04-07 09:35] LABS: BASOPHILS % 0.7 % (0.0-2.0); EOSINOPHILS % 4.6 % (0.0-5.0); HEMATOCRIT. 36.5 % (36.0-48.0); HEMOGLOBIN. 11.5 g/dL (12.0-16.0); LYMPHOCYTES % 38.6 % (20.0-50.0); MEAN CORPUSCULAR HEMOGLOBIN 29.8 pg (28.0-32.0); MEAN CORPUSCULAR VOLUME 94.4 fL (81.0-99.0); MEAN PLATELET VOLUME 9.2 fl (7.4-10.4); MONOCYTES % 13.4 % (2.0-8.0); NEUTROPHILS % 42.7 % (40.0-76.0); PLATELET 154 x1000/uL (130-400); RED BLOOD CELL COUNT 3.86 mill/uL (4.2-5.4); RED CELL DISTRIBUTION WIDTH 15.9 % (11.6-14.6)
[2020-04-07] MEDS ORDERED: KETOROLAC 15MG/ML VIAL IV ONE (10:30)
[2020-04-07] MEDS ORDERED: IPRATROPIUM/ALBUTEROL 0.5-3(2.5)MG/3ML NEB NEB PRN (11:15)
[2020-04-07] MEDS ORDERED: MAGNESIUM/ALUMINUM HYDROXIDE/SIMETHICONE 30ML UDC PO PRN (11:15)
[2020-04-07] MEDS ORDERED: NITROGLYCERIN 0.4MG TABLET SL SL PRN ×2 (11:15→11:30)
[2020-04-07] MEDS ORDERED: CLONIDINE 0.1MG TABLET PO PRN (11:15)
[2020-04-07] MEDS ORDERED: ACETAMINOPHEN 325MG TABLET PO PRN ×2 (11:15)
[2020-04-07] MEDS ORDERED: GUAIFENESIN 200MG/10ML SUGAR FREE UDC PO PRN (11:15)
[2020-04-07] MEDS ORDERED: KETOROLAC 15MG/ML VIAL IV PRN (11:15)
[2020-04-07] MEDS ORDERED: DOCUSATE SODIUM 100MG CAPSULE PO PRN (11:15)
[2020-04-07] MEDS ORDERED: ONDANSETRON HCL 4MG/2ML INJ IV PRN (11:15)
[2020-04-07] MEDS ORDERED: HALOPERIDOL LACTATE 5MG/ML VIAL IM PRN (11:15)
[2020-04-07] MEDS ORDERED: MEROPENEM 1,000 MG in SODIUM CHLORIDE 0.9% 100 ML IV SCH (12:00)
[2020-04-07] MEDS: ASCORBIC ACID 500 MG TABLET PO SCH ×2 (12:47→22:40)
[2020-04-07] MEDS: ASPIRIN 325MG EC TABLET PO SCH (12:47)
[2020-04-07] MEDS: ENOXAPARIN 40MG/0.4ML SYR SUBCUT SCH (12:47)
[2020-04-07] MEDS: FAMOTIDINE 20MG TABLET PO SCH (12:51)
[2020-04-07 15:46] LABS: CREATINE KINASE 109 IU/L (26-192)
[2020-04-07 15:47] LABS: CREATINE KINASE MB FRACTION 1.7 ng/mL (0.5-3.6)
[2020-04-07 22:00] VITALS: BP 140/80
[2020-04-08] VITALS (7 sets, daily range): BP systolic 114–142; BP diastolic 64–78
[2020-04-08 00:33] LABS: CREATINE KINASE 130 IU/L (26-192); CREATINE KINASE MB FRACTION 2.2 ng/mL (0.5-3.6)
[2020-04-08] MEDS: MEROPENEM 1,000 MG in SODIUM CHLORIDE 0.9% 100 ML IV SCH ×2 (01:25→12:05)
[2020-04-08] MEDS: ZOLPIDEM TARTRATE 5MG TABLET PO PRN (02:13)
[2020-04-08] MEDS ORDERED: PNEUMOCOCCAL 23-VAL P-SAC VAC 0.5 ML IM ONE (08:00)
[2020-04-08] MEDS: ASPIRIN 325MG EC TABLET PO SCH (08:08)
[2020-04-08] MEDS: ASCORBIC ACID 500 MG TABLET PO SCH ×2 (08:08→21:00)
[2020-04-08] MEDS: CHOLECALCIFEROL (D3) 1000 UNIT TABLET PO SCH (08:09)
[2020-04-08] MEDS: ZINC SULFATE 220 MG ( 50 ) CAPSULE PO SCH (08:09)
[2020-04-08] MEDS: FAMOTIDINE 20MG TABLET PO SCH (08:09)
[2020-04-08 09:46] LABS: BASOPHILS % 0.9 % (0.0-2.0); EOSINOPHILS % 6.4 % (0.0-5.0); HEMATOCRIT. 39.4 % (36.0-48.0); HEMOGLOBIN. 12.6 g/dL (12.0-16.0); LYMPHOCYTES % 40.5 % (20.0-50.0); MEAN CORPUSCULAR HEMOGLOBIN 29.8 pg (28.0-32.0); MEAN CORPUSCULAR VOLUME 93.3 fL (81.0-99.0); MEAN PLATELET VOLUME 8.6 fl (7.4-10.4); MONOCYTES % 11.8 % (2.0-8.0); NEUTROPHILS % 40.4 % (40.0-76.0); PLATELET 158 x1000/uL (130-400); RED BLOOD CELL COUNT 4.22 mill/uL (4.2-5.4); RED CELL DISTRIBUTION WIDTH 15.8 % (11.6-14.6)
[2020-04-08 10:04] LABS: CHLORIDE 114 mEq/L (98-107)
[2020-04-08 10:13] LABS: PHOSPHORUS 2.5 mg/dL (2.5-4.9)
[2020-04-08] MEDS: ENOXAPARIN 40MG/0.4ML SYR SUBCUT SCH (12:04)
[2020-04-09] MEDS: MEROPENEM 1,000 MG in SODIUM CHLORIDE 0.9% 100 ML IV SCH ×2 (01:53→12:15)
[2020-04-09 04:00] VITALS: BP 115/46
[2020-04-09 08:00] VITALS: BP 145/67
[2020-04-09] MEDS: ZINC SULFATE 220 MG ( 50 ) CAPSULE PO SCH (08:08)
[2020-04-09] MEDS: FAMOTIDINE 20MG TABLET PO SCH (08:08)
[2020-04-09] MEDS: ASCORBIC ACID 500 MG TABLET PO SCH ×2 (08:08→21:07)
[2020-04-09] MEDS: CHOLECALCIFEROL (D3) 1000 UNIT TABLET PO SCH (08:08)
[2020-04-09] MEDS: ASPIRIN 325MG EC TABLET PO SCH (08:09)
[2020-04-09 12:00] VITALS: BP 114/78
[2020-04-09] MEDS: ENOXAPARIN 40MG/0.4ML SYR SUBCUT SCH (12:15)
[2020-04-09 16:00] VITALS: BP 120/64
[2020-04-09 20:00] VITALS: BP 98/49
[2020-04-09] MEDS: ZOLPIDEM TARTRATE 5MG TABLET PO PRN (21:07)
[2020-04-10] VITALS: BP 103/53
[2020-04-10] MEDS: MEROPENEM 1,000 MG in SODIUM CHLORIDE 0.9% 100 ML IV SCH ×2 (00:07→12:03)
[2020-04-10 04:00] VITALS: BP 130/60
[2020-04-10 08:00] VITALS: BP 116/69
[2020-04-10] MEDS: ASCORBIC ACID 500 MG TABLET PO SCH ×2 (08:05→21:05)
[2020-04-10] MEDS: ASPIRIN 325MG EC TABLET PO SCH (08:05)
[2020-04-10] MEDS: FAMOTIDINE 20MG TABLET PO SCH (08:05)
[2020-04-10] MEDS: CHOLECALCIFEROL (D3) 1000 UNIT TABLET PO SCH (08:05)
[2020-04-10] MEDS: ZINC SULFATE 220 MG ( 50 ) CAPSULE PO SCH (08:05)
[2020-04-10 12:00] VITALS: BP 116/69
[2020-04-10] MEDS: ENOXAPARIN 40MG/0.4ML SYR SUBCUT SCH (12:00)
[2020-04-10 16:00] VITALS: BP 119/55
[2020-04-10 20:00] VITALS: BP 108/72
[2020-04-10] MEDS: ZOLPIDEM TARTRATE 5MG TABLET PO PRN (21:05)
[2020-04-11] VITALS: BP 107/63
[2020-04-11] MEDS: MEROPENEM 1,000 MG in SODIUM CHLORIDE 0.9% 100 ML IV SCH ×2 (01:04→12:13)
[2020-04-11 04:00] VITALS: BP 107/52
[2020-04-11] MEDS: ASCORBIC ACID 500 MG TABLET PO SCH (08:17)
[2020-04-11] MEDS: ASPIRIN 325MG EC TABLET PO SCH (08:17)
[2020-04-11] MEDS: ZINC SULFATE 220 MG ( 50 ) CAPSULE PO SCH (08:17)
[2020-04-11] MEDS: CHOLECALCIFEROL (D3) 1000 UNIT TABLET PO SCH (08:17)
[2020-04-11] MEDS: FAMOTIDINE 20MG TABLET PO SCH (08:17)
[2020-04-11 12:00] VITALS: BP 121/66
[2020-04-11] MEDS: ENOXAPARIN 40MG/0.4ML SYR SUBCUT SCH (12:12)
[2020-04-11 13:46] VITALS: BP 121/71
== END 2020-04-11 15:25 | disposition home or self-care (01) | DRG 720 ==
LOC: ER 04:13 → 7WST 11:05 → ENRESERV 20:47
PROVIDERS: ADMIT Internal Medicine; ATTEND Internal Medicine
DX: A41.9 Sepsis, unspecified organism (principal); U07.1 COVID-19; N39.0 Urinary tract infection, site not specified; E44.1 Mild protein-calorie malnutrition; M94.0 Chondrocostal junction syndrome [Tietze]; E11.9 Type 2 diabetes mellitus without complications; E78.5 Hyperlipidemia, unspecified; F31.9 Bipolar disorder, unspecified; I10 Essential (primary) hypertension; Z68.28 Body mass index [BMI] 28.0-28.9, adult; Z88.5 Allergy status to narcotic agent; Z88.0 Allergy status to penicillin; Z79.899 Other long term (current) drug therapy
CPT/HCPCS: 36415; 71045; 80053; 80305; 80320; 81003; 82550; 82553; 83735; 84100; 84484; 85025; 93005; 93970; 99285; C9803; J1630; J1650; J1885; J2185; J7040; J7050; U0003; G0480

== ENCOUNTER 2020-04-13 12:50 | Inpatient (IN) | payer MEDICARE, MEDICAID ==
[~2020-04-13] VITALS: Ht 165.1 cm; Wt 90.0 kg
[2020-04-13] MEDS ORDERED: IBUPROFEN 600MG TABLET PO STA (13:37)
[2020-04-13 14:52] LABS: BASOPHILS % 0.7 % (0.0-2.0); EOSINOPHILS % 3.6 % (0.0-5.0); HEMATOCRIT. 36.3 % (36.0-48.0); HEMOGLOBIN. 11.8 g/dL (12.0-16.0); LYMPHOCYTES % 28.5 % (20.0-50.0); MEAN CORPUSCULAR HEMOGLOBIN 30.2 pg (28.0-32.0); MEAN CORPUSCULAR VOLUME 93.1 fL (81.0-99.0); MEAN PLATELET VOLUME 8.4 fl (7.4-10.4); MONOCYTES % 10.4 % (2.0-8.0); NEUTROPHILS % 56.8 % (40.0-76.0); PLATELET 144 x1000/uL (130-400); RED CELL DISTRIBUTION WIDTH 15.9 % (11.6-14.6)
[2020-04-13 14:58] LABS: CHLORIDE 114 mEq/L (98-107)
[2020-04-13] MEDS ORDERED: ASPIRIN 81MG TABLET PO ONE (16:45)
[2020-04-13] MEDS ORDERED: NITROGLYCERIN 0.4MG TABLET SL SL PRN (19:45)
[2020-04-13] MEDS ORDERED: KETOROLAC 15MG/ML VIAL IV PRN (19:45)
[2020-04-13] MEDS ORDERED: ENOXAPARIN 40MG/0.4ML SYR SUBCUT SCH (19:45)
[2020-04-13] MEDS ORDERED: MAGNESIUM/ALUMINUM HYDROXIDE/SIMETHICONE 30ML UDC PO PRN (19:45)
[2020-04-13] MEDS ORDERED: GUAIFENESIN 200MG/10ML SUGAR FREE UDC PO PRN (19:45)
[2020-04-13] MEDS ORDERED: IPRATROPIUM/ALBUTEROL 0.5-3(2.5)MG/3ML NEB NEB PRN (19:45)
[2020-04-13] MEDS ORDERED: LORAZEPAM 0.5MG TABLET PO PRN (19:45)
[2020-04-13] MEDS ORDERED: DOCUSATE SODIUM 100MG CAPSULE PO PRN (19:45)
[2020-04-13] MEDS ORDERED: ACETAMINOPHEN 325MG TABLET PO PRN ×2 (19:45)
[2020-04-13] MEDS ORDERED: ONDANSETRON HCL 4MG/2ML INJ IV PRN (19:45)
[2020-04-13] MEDS ORDERED: CLONIDINE 0.1MG TABLET PO PRN (19:45)
[2020-04-13] MEDS: ENOXAPARIN 30MG/0.3ML SYR SUBCUT SCH (20:00)
[2020-04-13 20:20] LABS: *AMPHETAMINES SCREEN URINE NEGATIVE (NEGATIVE); *BARBITURATES SCREEN URINE NEGATIVE (NEGATIVE); *BENZODIAZEPINES SCREEN URINE NEGATIVE (NEGATIVE); *COCAINE SCREEN URINE NEGATIVE (NEGATIVE); METHADONE URINE SCREEN NEGATIVE (NEGATIVE); OPIATES URINE SCREEN NEGATIVE (NEGATIVE)
[2020-04-13 20:21] LABS: CANNABINOID URINE SCREEN NEGATIVE (NEGATIVE); PHENCYCLIDINE URINE SCREEN NEGATIVE (NEGATIVE)
[2020-04-13] MEDS: FAMOTIDINE 20MG TABLET PO SCH (21:49)
[2020-04-13] MEDS: ASCORBIC ACID 500 MG TABLET PO SCH (21:49)
[2020-04-13] MEDS: ZOLPIDEM TARTRATE 5MG TABLET PO PRN (23:21)
[2020-04-13 23:58] VITALS: BP 122/51
[2020-04-14 02:11] VITALS: BP 111/67
[2020-04-14 04:00] VITALS: BP 104/84
[2020-04-14 07:17] LABS: CREATINE KINASE 76 IU/L (26-192)
[2020-04-14 07:18] LABS: CREATINE KINASE MB FRACTION 1.3 ng/mL (0.5-3.6)
[2020-04-14] MEDS: ENOXAPARIN 30MG/0.3ML SYR SUBCUT SCH ×3 (08:00→21:59)
[2020-04-14] MEDS: CHOLECALCIFEROL (D3) 1000 UNIT TABLET PO SCH (09:11)
[2020-04-14] MEDS: ZINC SULFATE 220 MG ( 50 ) CAPSULE PO SCH (09:11)
[2020-04-14] MEDS: ASCORBIC ACID 500 MG TABLET PO SCH ×2 (09:11→22:00)
[2020-04-14] MEDS: ASPIRIN 325MG EC TABLET PO SCH (09:22)
[2020-04-14 12:00] VITALS: BP 122/56
[2020-04-14 16:00] VITALS: BP 105/62
[2020-04-14 20:00] VITALS: BP 123/82
[2020-04-14] MEDS: FAMOTIDINE 20MG TABLET PO SCH (22:00)
[2020-04-15] VITALS: BP 118/75
[2020-04-15 06:00] VITALS: BP 126/86
[2020-04-15 08:00] VITALS: BP 141/81
[2020-04-15] MEDS: ENOXAPARIN 30MG/0.3ML SYR SUBCUT SCH ×2 (08:00→20:51)
[2020-04-15] MEDS: ASCORBIC ACID 500 MG TABLET PO SCH ×2 (09:00→20:51)
[2020-04-15] MEDS: ASPIRIN 325MG EC TABLET PO SCH (09:00)
[2020-04-15] MEDS: CHOLECALCIFEROL (D3) 1000 UNIT TABLET PO SCH (09:00)
[2020-04-15] MEDS: ZINC SULFATE 220 MG ( 50 ) CAPSULE PO SCH (09:00)
[2020-04-15 12:00] VITALS: BP 128/91
[2020-04-15 20:00] VITALS: BP 111/76
[2020-04-15] MEDS: FAMOTIDINE 20MG TABLET PO SCH (20:51)
[2020-04-16] VITALS: BP 120/71
[2020-04-16] MEDS: ZOLPIDEM TARTRATE 5MG TABLET PO PRN (00:57)
[2020-04-16 04:00] VITALS: BP 126/69
[2020-04-16] MEDS: ENOXAPARIN 30MG/0.3ML SYR SUBCUT SCH ×2 (08:00→21:18)
[2020-04-16 08:01] VITALS: BP 97/48
[2020-04-16] MEDS: CHOLECALCIFEROL (D3) 1000 UNIT TABLET PO SCH (08:21)
[2020-04-16] MEDS: ASPIRIN 325MG EC TABLET PO SCH (08:21)
[2020-04-16] MEDS: ASCORBIC ACID 500 MG TABLET PO SCH ×2 (08:21→21:18)
[2020-04-16] MEDS: ZINC SULFATE 220 MG ( 50 ) CAPSULE PO SCH (08:22)
[2020-04-16 12:00] VITALS: BP 101/53
[2020-04-16 16:00] VITALS: BP 123/60
[2020-04-16 20:00] VITALS: BP 110/58
[2020-04-16] MEDS: FAMOTIDINE 20MG TABLET PO SCH (21:18)
[2020-04-17] VITALS (8 sets, daily range): BP systolic 96–106; BP diastolic 49–59
[2020-04-17] MEDS: ZINC SULFATE 220 MG ( 50 ) CAPSULE PO SCH (08:09)
[2020-04-17] MEDS: CHOLECALCIFEROL (D3) 1000 UNIT TABLET PO SCH (08:09)
[2020-04-17] MEDS: ASPIRIN 325MG EC TABLET PO SCH (08:09)
[2020-04-17] MEDS: ENOXAPARIN 30MG/0.3ML SYR SUBCUT SCH ×3 (08:09→20:38)
[2020-04-17] MEDS: ASCORBIC ACID 500 MG TABLET PO SCH ×2 (08:09→20:38)
[2020-04-17] MEDS: FAMOTIDINE 20MG TABLET PO SCH (20:38)
[2020-04-18] MEDS: ZOLPIDEM TARTRATE 5MG TABLET PO PRN (02:20)
[2020-04-18 04:00] VITALS: BP 104/47
[2020-04-18 08:00] VITALS: BP 124/63
[2020-04-18] MEDS: CHOLECALCIFEROL (D3) 1000 UNIT TABLET PO SCH (08:20)
[2020-04-18] MEDS: ZINC SULFATE 220 MG ( 50 ) CAPSULE PO SCH (08:20)
[2020-04-18] MEDS: ASCORBIC ACID 500 MG TABLET PO SCH (08:20)
[2020-04-18] MEDS: ASPIRIN 325MG EC TABLET PO SCH (08:20)
[2020-04-18] MEDS: ENOXAPARIN 30MG/0.3ML SYR SUBCUT SCH (08:20)
[2020-04-18 12:00] VITALS: BP 112/54
== END 2020-04-18 13:30 | DRG 203 ==
LOC: ER 13:22 → 7WST 18:30 → ENRESERV 20:55 → 7WST 04-14 08:49
PROVIDERS: ADMIT Internal Medicine; ATTEND Internal Medicine
DX: M94.0 Chondrocostal junction syndrome [Tietze] (principal); U07.1 COVID-19; D63.8 Anemia in other chronic diseases classified elsewhere; F31.9 Bipolar disorder, unspecified; E11.9 Type 2 diabetes mellitus without complications; I10 Essential (primary) hypertension; F41.9 Anxiety disorder, unspecified; Z88.6 Allergy status to analgesic agent; Z88.5 Allergy status to narcotic agent; Z88.0 Allergy status to penicillin; Z88.8 Allergy status to other drugs, medicaments and biological substances; Z79.899 Other long term (current) drug therapy
CPT/HCPCS: 36415; 71045; 80053; 80305; 82550; 82553; 82962; 84484; 85025; 93005; 93970; 99285; J1650; J1885; U0003